=== PATIENT | female | born 1940 | race Caucasian/White ===

== ENCOUNTER 2019-12-01 12:16 | Inpatient (IN) ==
[2019-12-01] MEDS ORDERED: Acetaminophen 325 MG TABLET PO PRN (16:02)
[2019-12-01] MEDS ORDERED: Naloxone 0.4 MG/ML INJ IVP PRN (16:02)
[2019-12-01] MEDS ORDERED: Perflutren Lipid Microsphere 1.3 ML in 0.9 % Sodium Chloride 8.7 ML IVP PRN (16:05)
[2019-12-01 17:05] LABS: Troponin I 0.29 ng/mL (< 0.04)
[2019-12-01 17:16] LABS: Thyroid Stimulating Hormone 1.916 mcIU/mL (0.340-5.600)
[2019-12-01] MEDS ORDERED: ALPRAZolam 0.5 MG TABLET PO PRN (17:30)
[2019-12-01] MEDS ORDERED: DilTIAZem CD (24hr) 120 MG CAP.ER.24H PO SCH (17:45)
[2019-12-02 02:02] LABS: Basophils % 0.3 %; Eosinophils % 0.3 %; Hematocrit 32.8 % (35.3-44.9); Hemoglobin 10.4 g/dL (11.5-15.4); Immature Granulocytes % 0.4 % (0-4); Lymphocytes # 0.8 K/mcL (0.6-4.6); Lymphocytes % 5.1 %; Mean Corpuscular HGB Conc 31.7 g/dL (31.6-35.5); Mean Corpuscular Volume 88.2 fL (83.0-100.0); Mean Platelet Volume 10.2 fL (9.4-12.4); Monocytes # 0.8 K/mcL (0.0-1.3); Monocytes % 4.8 %; Neutrophils # 13.9 K/mcL (1.6-8.9); Platelet Count 219 K/mcL (140-400); Red Blood Count 3.72 M/mcL (3.82-4.97); Red Cell Distribution Width 15.4 % (11.5-14.5); Segmented Neutrophils % 89.1 %; White Blood Count 15.6 K/mcL (4.3-11.1)
[2019-12-02 02:07] LABS: INR 1.4; Prothrombin Time 15.5 Seconds (9.4-12.1)
[2019-12-02 02:10] LABS: Activated Partial Thrombo Time 26.2 Seconds (26.0-36.0)
[2019-12-02 02:23] LABS: Albumin 3.9 g/dL (3.5-5.7); Albumin/Globulin Ratio 1.8 (1.1-2.2); Bilirubin,Total 0.6 mg/dL (0.3-1.0); Calcium 9.1 mg/dL (8.6-10.3); Globulin 2.2 g/dL (2.4-3.5); Potassium 3.2 mEq/L (3.5-5.1); Total Protein 6.1 g/dL (6.4-8.9)
[2019-12-02 03:35] LABS: Bilirubin,Urine Negative (Negative); Blood,Urine Negative (Negative); Clarity,Urine Clear (Clear); Color,Urine Light-Yellow (Yellow); Glucose,Urine (UA) Normal (Normal); Ketones,Urine Negative (Negative); Leukocyte Esterase,Urine Negative (Negative); Nitrite,Urine Negative (Negative); Protein,Urine Negative (Neg-Trace); Urobilinogen,Urine Normal (Normal)
[2019-12-02] MEDS ORDERED: Potassium Chloride 40 MEQ, Lidocaine 1% 2 ML in 0.9 % Sodium Chloride 500 ML IVPB ONE (03:38)
[2019-12-02 03:46] LABS: Sodium, Urine 37.5 mEq/L
[2019-12-02] MEDS ORDERED: Furosemide 20 MG/2 ML VIAL IVP ONE ×2 (04:51→17:00)
[2019-12-02] MEDS ORDERED: *HR* Heparin 5,000 UNIT/ML VIAL IVP ONE (05:41)
[2019-12-02] MEDS ORDERED: *HR* Heparin 5,000 UNIT/ML VIAL IVP PRN ×2 (05:41)
[2019-12-02] MEDS ORDERED: Heparin 25,000UNIT/250ML 1/2NS 25,000 UNIT/250 ML IV.SOLN IVC SCH (05:45)
[2019-12-02] MEDS ORDERED: Levalbuterol Neb 1.25 MG/3 ML IH ONE (05:54)
[2019-12-02 06:16] LABS: ABG Base Excess 3 mEq/L (-2 to 3); ABG HCO3 28 mEq/L (21-27); ABG Oxygen Saturation 91 % (95-98); ABG PCO2 45 mmHg (35-45); ABG PH 7.41 pH Units (7.32-7.45); ABG PO2 62 mmHg (85-104); ABG TCO2 30 mEq/L (20-26)
[2019-12-02 06:34] LABS: Hematocrit 36.8 % (35.3-44.9); Hemoglobin 11.3 g/dL (11.5-15.4); Mean Corpuscular HGB Conc 30.7 g/dL (31.6-35.5); Mean Corpuscular Hemoglobin 27.9 pg (28.0-33.3); Mean Corpuscular Volume 90.9 fL (83.0-100.0); Platelet Count 195 K/mcL (140-400); Red Blood Count 4.05 M/mcL (3.82-4.97); Red Cell Distribution Width 15.3 % (11.5-14.5); White Blood Count 15.7 K/mcL (4.3-11.1)
[2019-12-02 08:31] LABS: Calcium 9.3 mg/dL (8.6-10.3); Chol/HDL Ratio 4.1 (0-4.9); Potassium 3.5 mEq/L (3.5-5.1); Troponin I 0.33 ng/mL (< 0.04)
[2019-12-02] MEDS ORDERED: lisinopriL 20 MG TABLET PO SCH (09:00)
[2019-12-02 10:29] LABS: INR 1.4; Prothrombin Time 16.1 Seconds (9.4-12.1)
[2019-12-02 10:52] LABS: Heparin anti-factor XA UFH > 2.00 IU/mL (0.30-0.70)
[2019-12-02 11:39] LABS: Activated Partial Thrombo Time 163.1 Seconds (26.0-36.0)
[2019-12-02] MEDS: Metoprolol XL (24 HR) Succ 50 MG TAB.ER.24H PO SCH (15:02)
[2019-12-02] MEDS ORDERED: Furosemide 40 MG/4 ML VIAL IVP ONE (17:00)
[2019-12-02] MEDS: Heparin 25,000UNIT/250ML 1/2NS 25,000 UNIT/250 ML IV.SOLN IVC SCH (21:27)
[2019-12-03 05:11] LABS: Hemoglobin 10.1 g/dL (11.5-15.4); Mean Corpuscular HGB Conc 30.6 g/dL (31.6-35.5); Mean Corpuscular Hemoglobin 27.2 pg (28.0-33.3); Mean Corpuscular Volume 88.7 fL (83.0-100.0); Mean Platelet Volume 10.3 fL (9.4-12.4); Platelet Count 201 K/mcL (140-400); Red Blood Count 3.72 M/mcL (3.82-4.97); Red Cell Distribution Width 15.4 % (11.5-14.5); White Blood Count 8.4 K/mcL (4.3-11.1)
[2019-12-03 05:29] LABS: Calcium 9.2 mg/dL (8.6-10.3); Potassium 2.9 mEq/L (3.5-5.1)
[2019-12-03] MEDS: Aspirin 81 MG TAB.CHEW PO SCH (07:28)
[2019-12-03] MEDS: Metoprolol XL (24 HR) Succ 50 MG TAB.ER.24H PO SCH (07:28)
[2019-12-03] MEDS: amLODIPine 5 MG TABLET PO SCH (07:28)
[2019-12-03] MEDS ORDERED: Furosemide 40 MG/4 ML VIAL IVP ONE (09:29)
[2019-12-03] MEDS ORDERED: Melatonin 3 MG TABLET PO ONE (22:11)
[2019-12-04 03:29] LABS: Hematocrit 34.4 % (35.3-44.9); Hemoglobin 10.5 g/dL (11.5-15.4); Mean Corpuscular HGB Conc 30.5 g/dL (31.6-35.5); Mean Corpuscular Hemoglobin 26.5 pg (28.0-33.3); Mean Corpuscular Volume 86.9 fL (83.0-100.0); Mean Platelet Volume 10.7 fL (9.4-12.4); Platelet Count 234 K/mcL (140-400); Red Blood Count 3.96 M/mcL (3.82-4.97); Red Cell Distribution Width 15.2 % (11.5-14.5); White Blood Count 9.6 K/mcL (4.3-11.1)
[2019-12-04 03:39] LABS: Calcium 9.2 mg/dL (8.6-10.3); Potassium 3.2 mEq/L (3.5-5.1)
[2019-12-04] MEDS: amLODIPine 5 MG TABLET PO SCH (09:16)
[2019-12-04] MEDS: Aspirin 81 MG TAB.CHEW PO SCH (09:16)
[2019-12-04] MEDS: Metoprolol XL (24 HR) Succ 50 MG TAB.ER.24H PO SCH (09:16)
[2019-12-04] MEDS ORDERED: Furosemide 20 MG/2 ML VIAL IVP ONE (10:44)
[2019-12-04] MEDS ORDERED: 0.9 % Sodium Chloride 1,000 ML IVC SCH (11:00)
[2019-12-04] MEDS: ALPRAZolam 0.5 MG TABLET PO PRN (11:57)
[2019-12-04] MEDS: Heparin 25,000UNIT/250ML 1/2NS 25,000 UNIT/250 ML IV.SOLN IVC SCH ×2 (13:42→20:03)
[2019-12-04] MEDS ORDERED: 0.9 % Sodium Chloride 2,000 ML ONE (16:25)
[2019-12-04] MEDS ORDERED: *HR* Midazolam HCl 2 MG/2 ML VIAL ONE (16:25)
[2019-12-04] MEDS ORDERED: Heparin 1,000 UNITS/500 mL 500 ML ONE (16:25)
[2019-12-04] MEDS ORDERED: *HR* FentaNYL (PF) 100 MCG/2 ML VIAL ONE (16:25)
[2019-12-04] MEDS ORDERED: *HR* Heparin 10,000 UNIT/10 ML VIAL ONE (16:25)
[2019-12-04] MEDS ORDERED: ISOVUE-370 200 ML INFUS..BTL ONE (16:25)
[2019-12-04] MEDS ORDERED: Nitroglycerin 1,000 MCG/10 ML VIAL IV ONE (16:26)
[2019-12-05 05:13] LABS: Hematocrit 36.3 % (35.3-44.9); Hemoglobin 11.1 g/dL (11.5-15.4); Mean Corpuscular HGB Conc 30.6 g/dL (31.6-35.5); Mean Corpuscular Volume 91.4 fL (83.0-100.0); Mean Platelet Volume 10.7 fL (9.4-12.4); Platelet Count 180 K/mcL (140-400); Red Blood Count 3.97 M/mcL (3.82-4.97); Red Cell Distribution Width 15.1 % (11.5-14.5); White Blood Count 8.5 K/mcL (4.3-11.1)
[2019-12-05 05:32] LABS: Potassium 3.9 mEq/L (3.5-5.1)
[2019-12-05 06:37] LABS: VBG HCO3 31 mEq/L (21-27); VBG PCO2 49 mmHg (41-51); VBG PH 7.41 pH Units (7.32-7.42); VBG PO2 71 mmHg (25-50)
[2019-12-05] MEDS: amLODIPine 5 MG TABLET PO SCH (08:41)
[2019-12-05] MEDS: Metoprolol XL (24 HR) Succ 50 MG TAB.ER.24H PO SCH (08:41)
[2019-12-05] MEDS: Aspirin 81 MG TAB.CHEW PO SCH (08:42)
[2019-12-05] MEDS: ALPRAZolam 0.5 MG TABLET PO PRN (08:43)
[2019-12-05] MEDS ORDERED: Furosemide 20 MG TABLET PO SCH (09:00)
[2019-12-05 11:01] VITALS: BP 144/79
[2019-12-05] MEDS ORDERED: ALPRAZolam 0.5 MG TABLET PO SCH (21:00)
[2019-12-05] MEDS ORDERED: Apixaban 5 MG TABLET PO SCH (21:00)
== END 2019-12-05 14:52 | disposition home or self-care (01) | DRG 280 ==
LOC: 2ANU → SUATTDRO 14:54
PROVIDERS: ADMIT Internal Medicine; ATTEND Internal Medicine

== ENCOUNTER 2020-07-26 17:44 | Inpatient (IN) ==
[2020-07-26] MEDS ORDERED: Naloxone 0.4 MG/ML INJ IVP PRN (21:15)
[2020-07-26] MEDS ORDERED: 0.9 % Sodium Chloride 1,000 ML IVC SCH ×2 (21:15→23:34)
[2020-07-26] MEDS ORDERED: Ondansetron 4 MG/2 ML VIAL IVP PRN (21:15)
[2020-07-26 22:11] LABS: Basophils % 0.4 %; Eosinophils # 0.1 K/mcL (0.0-0.6); Eosinophils % 1.1 %; Hematocrit 30.8 % (35.3-44.9); Hemoglobin 9.7 g/dL (11.5-15.4); Immature Granulocytes % 0.5 % (0-4); Lymphocytes # 1.1 K/mcL (0.6-4.6); Lymphocytes % 10.2 %; Mean Corpuscular HGB Conc 31.5 g/dL (31.6-35.5); Mean Corpuscular Hemoglobin 26.7 pg (28.0-33.3); Mean Corpuscular Volume 84.8 fL (83.0-100.0); Mean Platelet Volume 10.1 fL (9.4-12.4); Monocytes # 0.8 K/mcL (0.0-1.3); Monocytes % 7.8 %; Neutrophils # 8.6 K/mcL (1.6-8.9); Platelet Count 214 K/mcL (140-400); Red Blood Count 3.63 M/mcL (3.82-4.97); Red Cell Distribution Width 15.1 % (11.5-14.5); White Blood Count 10.7 K/mcL (4.3-11.1)
[2020-07-27] MEDS ORDERED: *HR* Heparin 5,000 UNIT/ML VIAL IVP PRN ×2
[2020-07-27] MEDS ORDERED: Heparin 25,000UNIT/250ML 1/2NS 25,000 UNIT/250 ML IV.SOLN IVC SCH
[2020-07-27] MEDS: Melatonin 3 MG TABLET PO PRN (00:36)
[2020-07-27 01:21] LABS: INR 1.9; Prothrombin Time 21.9 Seconds (9.4-12.1)
[2020-07-27 01:24] LABS: Activated Partial Thrombo Time 28.6 Seconds (26.0-36.0)
[2020-07-27 01:26] LABS: Albumin 4.1 g/dL (3.5-5.7); Albumin/Globulin Ratio 1.4 (1.1-2.2); Bilirubin,Total 0.6 mg/dL (0.3-1.0); Calcium 9.8 mg/dL (8.6-10.3); Chol/HDL Ratio 3.6 (0-4.9); Globulin 2.9 g/dL (2.4-3.5); Magnesium 1.8 mg/dL (1.6-2.6); Potassium 3.3 mEq/L (3.5-5.1)
[2020-07-27 01:28] LABS: Heparin anti-factor XA UFH > 2.00 IU/mL (0.30-0.70)
[2020-07-27 01:46] LABS: Thyroid Stimulating Hormone 0.424 mcIU/mL (0.340-5.600)
[2020-07-27 04:58] LABS: Protein/Creatinine Ratio,Urine 0.43 mg/mg (0.00-0.20); Sodium, Urine 66.5 mEq/L
[2020-07-27 07:07] LABS: Heparin anti-factor XA UFH > 2.00 IU/mL (0.30-0.70)
[2020-07-27 08:54] LABS: Activated Partial Thrombo Time 29.1 Seconds (26.0-36.0)
[2020-07-27] MEDS ORDERED: CeFAZolin Syr 2,000MG/20 ML 2,000 MG/20 ML SYRINGE IVPB ONE (11:52)
[2020-07-27 13:35] LABS: Bacteria,Urine Few per hpf (None-Few); Bilirubin,Urine Negative (Negative); Blood,Urine Negative (Negative); Clarity,Urine Clear (Clear); Color,Urine Colorless (Yellow); Glucose,Urine (UA) Normal (Normal); Ketones,Urine Negative (Negative); Leukocyte Esterase,Urine Trace (Negative); Nitrite,Urine Negative (Negative); PH,Urine 6.5 pH Units (5.0-8.0); Protein,Urine Negative (Neg-Trace); RBC,Urine 0-3 per hpf (0-3); Squamous Epithelial Cell,Urine Few per hpf (None-Few); Urobilinogen,Urine Normal (Normal)
[2020-07-27] MEDS ORDERED: 0.9 % Sodium Chloride 500 ML ONE (14:31)
[2020-07-27] MEDS ORDERED: 0.9 % Sodium Chloride 1,000 ML ONE (14:31)
[2020-07-27] MEDS ORDERED: *HR* FentaNYL (PF) 100 MCG/2 ML VIAL ONE (14:53)
[2020-07-27] MEDS ORDERED: *HR* Midazolam HCl 2 MG/2 ML VIAL ONE (14:53)
[2020-07-27] MEDS: Acetaminophen 325 MG TABLET PO PRN (16:40)
[2020-07-27] MEDS ORDERED: Apixaban 5 MG TABLET PO SCH (21:00)
[2020-07-27] MEDS: ALPRAZolam 0.5 MG TABLET PO PRN (21:11)
[2020-07-27] MEDS: CeFAZolin 2 GM/120 ML BAG IVPB SCH (21:13)
[2020-07-28] MEDS: Melatonin 3 MG TABLET PO PRN (00:01)
[2020-07-28 01:59] LABS: Hematocrit 29.1 % (35.3-44.9); Hemoglobin 9.6 g/dL (11.5-15.4); Mean Corpuscular Hemoglobin 28.1 pg (28.0-33.3); Mean Corpuscular Volume 85.1 fL (83.0-100.0); Mean Platelet Volume 10.5 fL (9.4-12.4); Platelet Count 195 K/mcL (140-400); Red Blood Count 3.42 M/mcL (3.82-4.97); Red Cell Distribution Width 15.2 % (11.5-14.5); White Blood Count 10.5 K/mcL (4.3-11.1)
[2020-07-28 02:19] LABS: BUN/Creatinine Ratio 23 (6-26); Blood Urea Nitrogen 61 mg/dL (8-23); Carbon Dioxide 24 mEq/L (23-29); Chloride 98 mEq/L (98-107); Magnesium 1.6 mg/dL (1.6-2.6); Potassium 3.2 mEq/L (3.5-5.1); Sodium 135 mEq/L (136-145); eGFR For African Americans 20 (> 60); eGFR For Non-African Americans 17 (> 60)
[2020-07-28] MEDS: CeFAZolin 2 GM/120 ML BAG IVPB SCH (05:35)
[2020-07-28] MEDS: Metoprolol XL (24 HR) Succ 25 MG TAB.ER.24H PO SCH (08:13)
[2020-07-28] MEDS ORDERED: Potassium Chloride Elixir 20 MEQ/15 ML UDC PO ONE (08:24)
[2020-07-28] MEDS: ALPRAZolam 0.5 MG TABLET PO PRN (20:45)
[2020-07-28] MEDS ORDERED: Apixaban 5 MG TABLET PO SCH (21:00)
[2020-07-29] MEDS: Acetaminophen 325 MG TABLET PO PRN (02:56)
[2020-07-29 05:49] LABS: Calcium 9.8 mg/dL (8.6-10.3); Potassium 3.3 mEq/L (3.5-5.1)
[2020-07-29 07:04] VITALS: BP 134/75
[2020-07-29] MEDS ORDERED: Potassium Chloride Elixir 20 MEQ/15 ML UDC PO ONE (07:34)
[2020-07-29] MEDS: Metoprolol XL (24 HR) Succ 25 MG TAB.ER.24H PO SCH (08:21)
== END 2020-07-29 10:40 | disposition home or self-care (01) | DRG 242 ==
LOC: 2NNU → SUATTDRO 19:42
PROVIDERS: ADMIT Internal Medicine; ATTEND Internal Medicine